=== PATIENT | female | born 1950 | race Caucasian/White ===

== ENCOUNTER 2020-04-27 08:47 | Outpatient (CLI) | payer MEDICARE, SELFPAY ==
--- NOTE | ~2020-04-27 | XR_ITS ---
XR abdomen/kub 1V 04/27/2020 09:17 Indication: Renal stones Procedure: KUB Comparison: No prior studies for comparison. Findings: Bowel gas pattern is nonobstructive. Moderate colonic fecal loading. There are extensive lepe rgical changes of the abdomen. There is a calcification on the left at the L4 level. There are left p elvic calcifications. Impression: 1: Calcifications of the left mid abdomen and pelvis. Cannot exclude ureteral stones. Consider correl ation with CT. Reviewed, dictated and finalized at location A. Impression: 1: Calcifications of the left mid abdomen and pelvis. Cannot exclude ureteral s tones. Consider correlation with CT.
== END 2020-04-27 08:48 | disposition home or self-care (01) ==
LOC: ANHIMG 08:55
PROVIDERS: PCP Internal Medicine; Visit Provider Internal Medicine
DX: N20.0 Calculus of kidney (principal)
CPT/HCPCS: 74018

== ENCOUNTER 2023-03-07 09:54 | Outpatient (CLI) | payer MEDICARE, SELFPAY ==
--- NOTE | ~2023-03-07 | XR_ITS ---
XR knee RT min 4V DATE: 03/07/2023 10:34 INDICATION: Right knee pain TECHNIQUE: Standing AP, PA and lateral views. [place] view. COMPARISON: None FINDINGS: There is severe osteoarthritis at the medial compartment with vtuj-je-epqg, periarticular s purring, in addition to very prominent particular spurring at the patellofemoral joint. There is varus angulation at the knee. The lateral compartment joint space is well preserved. Mild suprapatellar knee joint effusion. No fracture, dislocation, periosteal reaction or bone destruction, radiopaque intra-articular loose b emilio or chondrocalcinosis. IMPRESSION: Severe medial and patellofemoral compartment osteoarthritis Mild knee joint effusion Reviewed, dictated and finalized at location B.
--- NOTE | ~2023-03-07 | XR_ITS ---
XR knee LT min 4V DATE: 03/07/2023 10:34 INDICATION: Right knee pain TECHNIQUE: Standing AP, PA and lateral views. [place] view. COMPARISON: None FINDINGS: There is prominent tricompartment osteoarthritis, particularly severe at the medial compart ment with virtual natw-we-yzqi in addition to prominent subarticular cystic changes, particularly at the medial tibial plateau.. There is tricompartment periarticular spurring, most prominent at the pat ellofemoral joint. No fracture or dislocation, periosteal reaction or bone destruction or significant joint effusion is evident. No radiopaque intra-articular loose body or chondrocalcinosis is detected. IMPRESSION: Severe tricompartment osteoarthritis, most pronounced at the medial and patellofemoral co mpartments Reviewed, dictated and finalized at location B. IMPRESSION: Severe tricompartment osteoarthritis, most pronounced at the medial and patellofemoral compartments
== END 2023-03-07 09:55 | disposition home or self-care (01) ==
PROVIDERS: PCP Internal Medicine; Visit Provider Internal Medicine
DX: M17.0 Bilateral primary osteoarthritis of knee (principal); M25.461 Effusion, right knee
CPT/HCPCS: 73564

== ENCOUNTER 2025-01-14 07:18 | Outpatient (CLI) | payer MEDICARE, SELFPAY ==
[2025-01-14 08:13] LABS: Anion Gap 12 mmol/L (4-12); Blood Urea Nitrogen 16 mg/dL (7-17); Calcium 9.9 mg/dL (8.4-10.2); Carbon Dioxide 27 mmol/L (22-30); Chloride 100 mmol/L (98-107); Cholesterol 194 mg/dL (0-200); Estimated Glomerular Filt Rate > 60; Glucose 89 mg/dL (65-110); HDL Direct 96 mg/dL; Sodium 139 mmol/L (137-145); Triglycerides 81 mg/dL (<150)
[2025-01-14 08:24] LABS: LDL Cholesterol Direct 62 mg/dL
[2025-01-14 08:30] LABS: Hemoglobin A1C 5.7 % (<5.7)
[2025-01-14 09:14] LABS: Vitamin D 25 Hydroxy 61.6 ng/mL
== END 2025-01-14 07:19 | disposition home or self-care (01) ==
PROVIDERS: PCP Internal Medicine; Visit Provider Internal Medicine
DX: E78.2 Mixed hyperlipidemia (principal); E55.9 Vitamin D deficiency, unspecified; R73.03 Prediabetes; Z79.899 Other long term (current) drug therapy; Z96.651 Presence of right artificial knee joint; Z12.11 Encounter for screening for malignant neoplasm of colon
CPT/HCPCS: 36415; 80048; 80061; 82306; 83036

== ENCOUNTER 2025-06-23 08:17 | Outpatient (CLI) | payer MEDICARE, SELFPAY ==
--- OUTSIDE RECORDS SUMMARY | 2025-06-23 08:21 | XMS_ITS | Clinical Summary ---
Author Organization [facility] Address [address] [place] [address] Care Team Providers Care Software Engineer Developer Name Role Phone Yamil Brian MD Primary Care Provider [phone] Jaleesa Medina MD Unavailable [phone] Leonard Collier MD Unavailable Aft, Antoinette Arita MD PhD Unavailable [phone] Inocente Rendon MD Unavailable Allergies Active Allergy Reactions Criticality Noted Date Comments Sulfa (Sulfonamide Antibiotics) Rash Medium 11/18 Medications buPROPion XL (WELLBUTRIN XL) 150 mg 24 hr tabletIndicatio ns:Anxiety with Depression Take 1 tablet (150 mg total) by mouth every morning 9 Active RESTASIS 0.05 % ophthalmic emulsionIndicat ions:Keratoconj unctivitis Sicca Administer 1 drop into both eyes nightly 9 Active VITAMIN D2 50,000 unit capsuleIndicati ons:Vitamin D Deficiency,take s on Sundays Take 50,000 Units by mouth every 2 (two) weeks 8 Active rosuvastatin (CRESTOR) 10 mg tabletIndicatio ns:hyperlipidem ia Take 1 tablet (10 mg total) by mouth every morning Active MULTIVITAMIN ORALIndications :supplement Take 1 tablet by mouth every morning Active anastrozole (ARIMIDEX) 1 mg tablet TAKE 1 TABLET(1 MG) BY MOUTH DAILY 90 tablet 3 5 Active Calcium 600 + D,3, 600 mg-10 mcg (400 unit) per tablet TAKE 1 TABLET BY MOUTH DAILY 30 tablet 11 5 Active Active Problems Problem Noted Date Diagnosed Date S/P breast reconstruction 08/18/2020 Overview (08/18/2020): Added automatically from request for surgery [id number] History of breast cancer 05/02/2020 Acquired absence of both breasts 05/02/2020 Encounter for follow-up surveillance of breast c ancer 07/29/2019 Malignant neoplasm of upper- outer quadrant of right breast in female, estrogen receptor positive 03/22/2019 Cancer Staging:Clinical stage from 12/24/2017:Stage 0(cTis (DCIS), cN0, cM0, G3, ER: Not Assessed, MN: Not Assessed, HER2: Not Assessed) - Signed by Sarah Higgins, PhD on 04/16/2019 Pathologic stage from 03/11/2019:Stage IA(pT1c, pN1a, cM0, G1, ER+, MN+, HER2-) - Signed by Sarah Higgins, PhD on 04/16/2019 Nipple discharge in female 12/09/2018 Immunizations Immunization Administration Dates Next Due Influenza, Quadrivalent, Evy l Culture-based MDCK, Antibiotic Free, Intramuscular 08/19/2019 Influenza, Trivalent, Adjuvanted, Intramuscular 08/16/2020 Influenza, Trivalent, High D ose, Split, Preservative Free, Intramuscular 09/21/2018 Influenza, Unspecified 10/28/2013,11/29/2012 Moderna SARS-CoV-2 Monovalent Vaccination (12+ Y RS) 02/05/2021,01/04/2021 Pneumococcal Conjugate PCV 13 11/04/2018 Tdap 12/14/2019 Varicella 08/17/2010 ZOSTER Recombinant 07/13/2019 Surgical History Surgery Date Site/Laterality Comments HYSTERECTOMY 10/17/2006 - 11/16/2006 BREAST BIOPSY 11/17/1999 - 11/16/2000 Left BREAST BIOPSY 12/24/2018 Right BREAST BIOPSY 01/19/2019 Right TONSILLECTOMY 11/17/1955 - 11/16/1956 BIOPSY 11/17/1989 - 11/16/1990 thyroid SIMPLE MASTECTOMY W/ SENTINEL NODE BIOPSY 03/11/2019 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 03/17/2020 - 04/16/2020 Left Left prophylactic nipple sparing COLONOSCOPY 11/17/2014 - 11/16/2015 THYROIDECTOMY, PARTIAL 1990s REPLACEMENT TOTAL KNEE Right Medical History Medical History Date Comments Breast cancer (HCC) Right ductal carcinoma dxd 12/2018 s/p mastectomy 03/2019 and Left prophlactic mastectomy 03/2020, s/p radiation (last 06/2020) History of radiation therapy ibis ast cancer completed Hyperlipidemia Treated with sta tin Family History Medical History Relation Name Comments Stroke Father Lung cancer Maternal Grandfather lung cancer Maternal Grandfather Anesthesia problems Neg Hx Relation Name Status Comments Daughter Alive Father Maternal Grandfather Mother Alive Sister Alive Son Alive Social History Tobacco Use Types Packs/Day Years Used Date Smoking Tobacco: Never Smokeless Tobacco: Never Alcohol Use Standard Drinks/Week Comments Not Currently 0 (1 standard drink = 0.6 oz pur e alcohol) rarely PHQ-2 Answer Date Recorded PHQ-2 Score 0 07/08/2019 Comments No Sex and Gender Information Value Date Recorded Sex Assigned at Not on file Legal Sex 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 Gender Identity Not on file Sexual Orientation Straight 03/13/2019 3: 08 PM CDT 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, 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 Not on file Not on file Not on file Obstetrics History Para Term AB IAB SAB Ectopic Multiple Livin g Live Births 2 2 Date Outcome GA Total Labor Labor/2nd/3rd Weight Sex Type Anes PTL Tari A1 A5 Name Clin Para Para Last Filed Vital Signs Vital Sign Reading Time Taken Comments Blood Pressure 128/76 07/23/2024 8:02 AM CDT Pulse 103 07/23/2024 8:02 AM CDT Temperature 36.1 C (97 F) 07/23/2024 8:02 AM CDT Respiratory Rate 18 07/23/2024 8:02 AM CDT Oxygen Saturation 97% 07/23/2024 8:02 AM CDT Inhaled Oxygen Concentration - - Weight 69.1 kg (152 lb 6.4 oz) 07/23/2024 8:02 A M CDT Height 167.6 cm (5' 6) 07/12/2021 8:39 AM CDT Body Mass Index 24.6 07/12/2021 8:39 AM CDT Plan of Treatment Health Maintenance Due Date Last Done Comments Colon Cancer Screening-Colonoscopy 1950 Hepatitis C Screening 1950 Hepatitis B Screening 1969 Well Visit 65+ 2016 Pneumococcal vaccine 65+ (2 of 2 - PPSV23) 12/30/2018 11/04/2018 Zoster Vaccine (2 of 2) 09/07/2019 07/13/2019 Depression Screening 02/03/2020 02/02/2019, 02/03/20 19 Breast Cancer Screening-Mammogram 01/03/2021 020 Covid-19 Vaccine (3 - Modern a risk series) 03/05/2021 02/05/2021, 01/04/2021 Fall Risk Assessment 09/27/2021 09/27/2020 Influenza Vaccine (#1) 2025 , 08/19/2019, 09/21/2018, Additional history exists Osteoporosis Screening-Bone Density Scan 07/20/2026 07/20/2024, 07/10/2023, 04/25/2021, Additional history exists DTaP/Tdap/Td Vaccine (2 - Td or Tdap) 12/14/2029 12/14/2019 Medical Devices Implanted Type Area Country Manager Device Identifier Shelf Expiration Date Model / Serial / Lot [employer] 68-420 Natrelle 13.4cm Style 68 Smooth Anterior Diaphragm Valve P4.5cm Latex Free - [id number] - [id number] Implanted:Qty: 1 on 09/27/2020 by Jin Talley MD at [facility] Breast Left: Breast [employer] [id number] 05/14/2024 [id number] / [id number] / [id number] Description:360cc fill [employer] 133mx-11-T Natrelle Biocell Magna-Site [id number] Style 133mx-T Textured Tab - [id number] - [id number] Implanted:Qty: 1 on 03/11/2019 by Inderjit Keith II, MD at [facility] [employer] [id number] 07/27/2022 133M X-11 -T / [id number] / Musculoskeletal Transplant [id number] Flexhd 16x8cm Allograft Hydrate Biologic Mesh Pliable Thk.8-1.7mm - [id number] - [id number] Implanted:Qty: 1 on 03/11/2019 by Inderjit Keith II, MD at [facility] Right: Breast Musculoskeletal Transplant 07/14/2021 [id number] / [id number] / Life [id number] Alloderm Select [id number] Allograft Regenerative Thk.4-2.4mm Thick - [id number] - [id number] Implanted:Qty: 1 on 04/13/2020 by Aft, Antoinette Arita MD PhD at [facility] Left: Breast [employer] 12/17/2021 [id number] / [id number] / [id number] [employer] [id number] Reeves Microvascular 2.5mm Ring Pin Protective Cover Jaw Assembly Latex Free - [id number] Implanted:Qty: 1 on 04/13/2020 by Antionette Baig MD PhD at [facility] Right: Breast [employer] Skylines Allian [id number] 10/09/2024 [id number] / / [id number] [employer] [id number] Reeves Microvascular Anastomoses 1.5mm Field Identification Specialist Anastomosis Sterile - [id number] Implanted:Qty: 1 on 04/13/2020 by Jovanni, Antoinette Arita MD PhD at [facility] Right: Breast [employer] SPOOTNIC.COMian 11/06/2023 [id number] / / [id number] Explanted Type Area Country Manager Device Identifier Shelf Expiration Date Model / Serial / Lot [employer] [id number]-Dd-41-[id number] Implant Mammary Natrelle Te Smooth 344c-Jn-50-T With Fourte - [id number] - [id number] Implanted:Qty : 1 on 04/13/2020 by Antoinette Baig MD PhD at [facility] Explanted:Qty : 1 on 09/27/2020 by Jin Talley MD at [facility] Left: Breast [employer] [id number] 08/08/2024 133S-MX-1 3-T / [id number] / Procedures Procedure Name Priority Date/Time Associated Diagnosis Comments DEXA AXIAL SKELETON BONE DENSITY 1 OR MORE SITES Schedule Routine, Read Routine (OP Routine) 07/20/2024 8:08 AM CDT alf (current) use of aromatase inhibitors Osteopenia, unspecified location SCREENING MAMMOGRAM LEFT W SHANKAR UNILATERAL ONLY Schedule Routine, Read Routine (OP Routine) 01/03/2020 3:55 PM 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 Consider follow-up bone densitometry evaluation in 2-3 years. Electronically signed by: Tate Beebe M.D. 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 Bone mineral density (BMD) of the lumbar spine (L1-L4): T-score 0.9, previously 0.7 Bone mineral density (BMD) of the femoral neck: T-score -1.7, previously -2.0 Bone mineral density (BMD) of the total hip: T-score -1.3, previously -1.5 IMPRESSION: Osteopenia. Consider follow-up bone densitometry evaluation in 2-3 years. Electronically signed by: Tate Beebe M.D. Flor Salguero NP IMG DXA PROCEDURES Final R esult * Screening Mammogram Left W Shankar Unilateral Only (01/03/2020 3:55 PM STRATEGIC PARTNERSHIP SPECIALIST) Anatomical Region Laterality Modality Breast Left Mammography Narrative 01/03/2020 4:33 PM STRATEGIC PARTNERSHIP SPECIALIST Mammogram Technique: Left Breast Digital Breast Tomosynthesis, Unilateral C-view 2D Screening mammogram. Views obtained: left craniocaudal and left mediolateral oblique. Computer Aided Detection was performed. Mammogram Findings: The present examination has been compared to prior imaging studies performed at [facility] on 07/10/2004, 12/09/2018 and 01/03/2020. The breast is heterogeneously dense, which may obscure small masses. There is an area of architectural distortion in the anterior upper mediolateral oblique view of the left breast. Patient status post contralateral mastectomy for personal history of breast cancer. Impression: Area of architectural distortion in the left breast requires additional evaluation. Additional views are recommended. OVERALL FINAL ASSESSMENT: BI-RADS CATEGORY 0: Incomplete: Need additional imaging evaluation. Procedure Note Adria Maciel MD - 01/03/2020 Mammogram Technique: Left Breast Digital Breast Tomosynthesis, Unilateral C-view 2D Screening mammogram. Views obtained: left craniocaudal and left mediolateral oblique. Computer Aided Detection was performed. Mammogram Findings: The present examination has been compared to prior imaging studies performed at [facility] on 07/10/2004, 12/09/2018 and 01/03/2020. The breast is heterogeneously dense, which may obscure small masses. There is an area of architectural distortion in the anterior upper mediolateral oblique view of the left breast. Patient status post contralateral mastectomy for personal history ofbreast cancer. Impression: Area of architectural distortion in the left breast requires additional evaluation. Additional views are recommended. OVERALL FINAL ASSESSMENT: BI-RADS CATEGORY 0: Incomplete: Need additional imaging evaluation. Antoinette Baig MD PhD IMG MAMMO PROCEDURES Final Result from Last 3 Months or Most Recently Relevant to Health Maintenance Insurance MEDICARE [facility] MEDICARE [facility]AGE [facility] MEDICARE Address: [address] [address] [place] [address] [facility] MEDICARE [facility] MEDICARE Address: [address] [address] [place] [address] [address] [facility] MEDICARE Address: [address] [place] [address] [employer] MEDICARE ADVANTAGE [facility] MEDICARE Address: [address] [address] [place] [address] Advance Directives For more information, please contact: [phone] * Full Code (Latest Code Status on File) Date Activated Date Inactivated Comments 04/13/2020 6:55 PM 04/16/2020 7:48 PM * Full Code Date Activated Date Inactivated Comments 03/11/2019 4:19 PM 03/12/2019 3:29 PM Care Teams Software Engineer Developer Relationship Specialty Start Date End Date Yamil Brian MD [address] [place] [address] PCP - General Internal Medicine 11/12/18 Jaleesa Medina MD [address] [place] [address] Referring Physician Gynecology 11/12/18 Leonard Collier MD [address] [place] [address] Radiation Oncologist Radiation Oncology 04/16/19 Antoinette Baig MD PhD [address] [place] [address] Surgeon Surgical Oncology 04/16/19 Inocente Rendon MD [address] [place] [address] Medical Oncologist/Wave Guide Assembler Medical Oncology 10/09/20
--- OUTSIDE RECORDS SUMMARY | 2025-06-23 08:21 | XMS_ITS | Clinical Summary ---
Author Organization [facility] Address [address] [place] [address] Care Team Providers Care Compliance Review Specialist Name Role Phone Yamil Brian MD Primary Care Provider [phone] Heri Mckeon MD Unavailable [phone] Source Comments [facility] Affiliates and Associated Physician Practices is amultiple site organization consisting of ambulatory clinics and hospital sitesin [place] and [place]. This disclosure is being madepursuant to the Care Everywhere program and may not contain all information available regarding this patient. Last updated 18.[facility] [employer] Allergies Active Allergy Reactions Criticality Noted Date Comments Sulfa Antibiotics Rash Medium 12/09/2018 In antibiotics only Medications * Be aware that medications may not be up to date on this document. Alwaysverify current medications with the patient. rosuvastatin (Crestor) 10 MG tabletIndicatio ns:Hyperlipidem ia Take 1 tablet by mouth once daily Reasons: High Amount of Fats in the Blood 4 Active Restasis 0.05 % ophthalmic suspensionIndic ations:Dry Eye Syndrome 1 (one) drop 2 times daily BOTH EYES Reasons: Drying and Inflammation of Cornea and Conjunctiva of Eyes 4 Active Calcium 600+D3 600-10 MG-MCGIndicatio ns:Hypocalcemia Take 1 (one) tablet by mouth once daily Reasons: Low Amount of Calcium in the Blood 4 Active buPROPion XL 24hr (Wellbutrin-XL) 300 MG tabletIndicatio ns:Major Depressive Disorder Take 1 tablet by mouth every morning Reasons: Major Depressive Disorder 4 Active anastrozole (Arimidex) 1 MG tabletIndicatio ns:Malignant Neoplasm of Breast Take 1 tablet by mouth once daily Reasons: Cancer of the Breast 4 Active celecoxib (CeleBREX) 200 MG capsuleIndicati ons:Osteoarthri tis Take 1 (one) capsule by mouth once daily 60 capsule 2 4 Active acetaminophen (Tylenol) 500 MG capsuleIndicati ons:Pain,MILD TO MODERATE PAIN Take 2 (two) capsules by mouth 3 times daily Take 3x/day for 10 days, then as needed for pain 4 Active Multiple Vitamins-Minera ls (MULTIVITAMIN GUMMIES ADULT PO)Indications: SUPPLEMENT Take 1 tablet by mouth once daily. Indications: SUPPLEMENT 1 Active oxyCODONE, immediate release, (Roxicodone) 10 MG tabletIndicatio ns:Acute Pain,MODERATE TO SEVERE PAIN Take 0.5 (one-half) tablet to 1 (one) tablet by mouth every 4 hours as needed for Pain (pain) Reasons: Acute Pain, MODERATE TO SEVERE PAIN 30 tablet 4 Active aspirin EC (Ecotrin) 81 MG tablet TAKE 1 (ONE) TABLET BY MOUTH 2 TIMES DAILY FOR 42 DAYS TAKE FOR BLOOD CLOT PREVENTION FOR 6 WEEKS 84 tablet 4 Active omeprazole (PriLOSEC) 20 MG capsule TAKE 1 (ONE) CAPSULE BY MOUTH ONCE DAILY FOR 42 DAYS 42 capsule 4 Active Active Problems Problem Noted Date Diagnosed Date Primary osteoarthritis of both knees 02/24/2024 Social History Tobacco Use Types Packs/Day Years Used Date Smoking Tobacco: Never Smokeless Tobacco: Never Tobacco Cessation:Counseling Given: Not Answered Alcohol Use Standard Drinks/Week Comments Not Currently 0 (1 standard drink = 0.6 oz pur e alcohol) OASIS D0700: Social Isolation Answer Da te Recorded Frequency of experiencing loneliness or isolatio n Never 06/09/2024 OASIS A1250: Transportation Answer Date Recorded Lack of Transportation (Medical) No 06/09/2024 Lack of Transportation (Non-Medical) No 06/09/2024 Patient Unable or Declines to Respond No 06/09/2024 OASIS B1300: Health Literacy Answer Ravi e Recorded Frequency of needing help to read materials from doctor or pharmacy Never 06/09/2024 AUDIT-C Answer Date Recorded Q1: How often do you have a drink containing alc ohol? Monthly or less 05/19/2024 Q2: How many drinks containi ng alcohol do you have on a typical day when you are drinking? 1 or 2 05/19/2024 Q3: How often do you have si x or more drinks on one occasion? Never 05/19/2024 Overall Financial Resource Strain (CARDIA) Answe r Date Recorded How hard is it for you to pa y for the very basics like food, housing, medical care, and heating? Not hard at all 05/19/2024 PHQ-2 Answer Date Recorded Patient Health Questionnaire-2 Score 0 08/06/2024 [facility] - Occupational Stress Questionnaire Answer Date Recorded Do you feel stress - tense, restless, nervous, or anxious, or unable to sleep at night because your mind is troubled all the time - these days? Not at all 05/19/2024 Hunger Vital Sign Answer Date Recorded Within the past 12 months, y ou worried that your food would run out before you got the money to buy more. Never true 05/19/20 24 Ran Out of Food in the Last Year Not on file 05/19/2024 PRAPARE - Transportation Answer Date Re corded In the past 12 months, has l ack of transportation kept you from medical appointments or from getting medications? No 01/2024 In the past 12 months, has l ack of transportation kept you from meetings, work, or from getting things needed for daily living? No 05/19/2024 Housing Stability Vital Sign Answer Ravi e Recorded In the last 12 months, was t here a time when you were not able to pay the mortgage or rent on time? No 05/19/2024 In the last 12 months, how many places have you lived? 1 05/19/2024 In the last 12 months, was t here a time when you did not have a steady place to sleep or slept in a custodial (including now)? 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 Gender Identity Not on file Sexual Orientation Not on file Last Filed Vital Signs Vital Sign Reading Time Taken Comments Blood Pressure 136/70 06/09/2024 12:06 PM CDT Pulse 87 06/09/2024 12:06 PM CDT Temperature 36.1 C (97 F) 06/09/2024 12:06 PM CDT Respiratory Rate 16 06/09/2024 12:06 PM CDT Oxygen Saturation 100% 06/09/2024 12:06 PM CDT Inhaled Oxygen Concentration - - Weight 68.6 kg (151 lb 3.2 oz) 05/19/2024 7:47 A M CDT Height 167.6 cm (5' 6) 05/19/2024 7:47 AM CDT Body Mass Index 24.4 05/19/2024 7:47 AM CDT Plan of Treatment Health Maintenance Due Date Last Done Comments COLOGUARD (AGES 45-75) - COLON CA SCREENING 1950 COLON MONITORING 1950 COLONOSCOPY - COLON CA SCREENING 1951 CT COLONOGRAPHY - COLON CA SCREENING 1950 Colorectal Cancer Screening 1950 FIT - COLON CA SCREENING 1950 FLEX SIG - COLON CA SCREENING 1950 HEPATITIS C SCREENING 06/06/1969 DTAP/TDAP/TD VACCINES (1 - Tdap) 1970 PNEUMOCOCCAL VACCINE 50+ (1 of 1 - PCV) 2001 ZOSTER VACCINE (1 of 2) 2001 MAMMOGRAM 01/03/2022 01/03/2020, 01/03/2020 COVID-19 VACCINE ( season) 2024 02/05/2021, 01/04/2021 DEPRESSION SCREENING 11/17/2024 02/23/2024 MEDICARE AWV CALENDAR YEAR 2024 INFLUENZA VACCINE (#1) 2025 , 08/19/2019, 09/21/2018, Additional history exists Respiratory Syncytial Virus (RSV) Vaccine Pt: or over 60 yrs (1 - 1-dose 75+ series) 2026 BONE DENSITY TESTING Completed 07/20/2024, 07/10/2023, 04/25/2021, Additional history exists HEPATITIS B VACCINE Aged Out No longe r eligible based on patient's age to complete this topic HIB VACCINE Aged Out No longer eligi ble based on patient's age to complete this topic HPV VACCINE Aged Out No longer eligi ble based on patient's age to complete this topic MENINGOCOCCAL (Group B) VACCINE SHARED DECISION-MAKING Aged Out No longer eligible based on patient's age to complete this topic MENINGOCOCCAL GROUPS A/C/Y/W VACCINE Aged Out No longer eligible based on patient's age to complete this topic Medical Devices Implanted Type Area Supervisor Parking Lot Device Identifier Shelf Expiration Date Model / Serial / Lot Cmnt Bone Plc R 40gm Grn Implanted:Qty: 1 on 05/19/2024 by Heri Mckeon MD at [facility] Right: Knee [employer] 09/16/2026 [id number] / / [id number] Cmpnt Ptlr Std 28mm 3 Pg Kn Ser A Implanted:Qty: 1 on 05/19/2024 by Heri Mckeon MD at [facility] Right: Knee [employer] 07/10/2028 [id number] / / [id number] Tray Tib 71mm Kn Cocr I Beam Implanted:Qty: 1 on 05/19/2024 by Heri Mckeon MD at [facility] Right: Knee [employer] 04/06/2034 [id number] / / [id number] Cmpnt Fem Kn Rt Cr Cmnt Prm Vngrd Intlk Implanted:Qty: 1 on 05/19/2024 by Heri Mckeon MD at [facility] Right: Knee [employer] 01/16/2034 [id number] / / [id number] Brng 37d97qm Vngrd Vivacit-E Kn Ant Stab Implanted:Qty: 1 on 05/19/2024 by Heri Mckeon MD at [facility] Right: Knee [employer] 03/28/2029 [id number] / / [id number] Insurance [facility] ADV [facility]IC[facility] ADV Advance Directives * Full Code (Latest Code Status on File) Date Activated Date Inactivated Comments 05/22/2024 10:38 AM To update the patient's code status, place a code status order. Do not modify or discontinue any currently active code status orders. * Full Code Date Activated Date Inactivated Comments 05/19/2024 12:57 PM 05/20/2024 12:32 PM Care Teams Compliance Review Specialist Relationship Specialty Start Date End Date Yamil Brian MD [address] [place] [address] PCP - General Internal Medicine 02/23/24 [place] [address] [address] Surgeon Orthopedic Surgery 02/23/24
--- OUTSIDE RECORDS SUMMARY | 2025-06-23 08:21 | XMS_ITS | Encounter Summary ---
Author Organization [facility] Address [address] [place] [address] Care Team Providers Care Search Engine Marketing Strategist Name Role Phone Yamil Brian MD Primary Care Provider [phone] Heri Mckeon MD Unavailable [phone] Encounter Details Date Type Department Care Team (Late st Contact Info) Description 11/06/2022 Lab Requisition [facility] [address] [place] [address] Car Driscoll MD [address] [place] [address] Social History Tobacco Use Types Packs/Day Years Used Date Smoking Tobacco: Never Assessed Comments Unknown Sex and Gender Information Value Date Recorded Sex Assigned at Not on file 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 Gender Identity Not on file Sexual Orientation Not on file documented as of this encounter Plan of Treatment Not on file documented as of this encounter Procedures Procedure Name Priority Date/Time Associated Diagnosis Comments DERMATOPATHOLOGY Routine 11/05/2022 12:0 0 AM CLEAN OUT DRILLER HELPER documented in this encounter Results * DERMATOPATHOLOGY (11/05/2022 12:00 AM CLEAN OUT DRILLER HELPER) Case Report Dermatopathology Report Case: [id number] Authorizing Provider: Car Driscoll MD Collected: 11/05/2022 12:00 AM Ordering Location: [facility] Received: 11/06/2022 06:19 AM Pathologist: Will Asher MD Specimen: Skin, mid upper back 2 4:10 PM [facility] Final Diagnosis Specimen A. SKIN, mid upper back: EPIDERMOID CYST (L72.0) PRESENT AT MARGIN 2 4:10 PM [facility]ERMATOP[facility]OR[facility] at [address] CLEAN OUT DRILLER HELPER Clinical History Reoccur Cyst 4:10 PM [facility] Gross Description Specimen A: Received is one formalin filled container labeled with the patient's name and designated mid upper back. The specimen consists of a [id number] and 40h8h3bn piece of skin. The specimen is serially sectioned and account representative sections are submitted in cassette 1. Jar 1. 4:10 PM [facility] Microscopic Description Specimen A. SKIN, mid upper back: Within the dermis, there is a space lined by epithelium that resembles normal epidermis and the infundibular portion of the hair follicle. This lesion is present at the margin of the specimen. 2 4:10 PM [facility] Disclaimer An external and internal positive and negative controls are appropriate for the histochemical, immunohistochemical and immunofluorescence stain(s) in this case (if any), except where stated explicitly. The performance characteristics of the stain(s) cited in this report were developed and its performance characteristic determined by the Dermatopathology Laboratory at [facility], directed by Dr. Zahra Asher. These tests need not be, and therefore are not, approved by the [place] Food and Drug Administration. The tests are used for clinical purposes. Billing Codes Specimen Charges Stain Charges 09106 1 2 4:10 PM [facility] Embedded Images 2 4:10 PM [facility] Pathology/Cytolog y TISSUE SPECIMEN FROM SKIN / Unknown 11/05/2022 11/06/2022 6:19 AM [facility] us Car Driscoll MD LAB - PATHOLOGY/CYTOLOGY ORDERAB LES Final Result DERMATOPATHOLOGY LABORATORY [facility] - Department of Dermatology [address], [address] [phone] documented in this encounter Visit Diagnoses Not on filedocumented in this encounter Care Teams Search Engine Marketing Strategist Relationship Specialty Start Date End Date Yamil Brian MD [address] [place] [address] PCP - General Internal Medicine 02/23/24 [place] [address] [place] [address] Surgeon Orthopedic Surgery 02/23/24 documented as of this encounter
--- OUTSIDE RECORDS SUMMARY | 2025-06-23 08:21 | XMS_ITS ---
Author Organization [facility] Address [address] [place] [address] Care Team Providers Care Athletic Field Custodian Name Role Phone Yamil Brian MD Primary Care Provider [phone] Jaleesa Medina MD Unavailable [phone] Leonard Collier MD Unavailable Aft, Antoinette Arita MD PhD Unavailable [phone] Inocente Rendon MD Unavailable Active Problems Problem Noted Date Diagnosed Date S/P breast reconstruction 08/18/2020 Overview (08/18/2020): Added automatically from request for surgery [id number] History of breast cancer 05/02/2020 Acquired absence of both breasts 05/02/2020 Encounter for follow-up surveillance of breast c ancer 07/29/2019 Malignant neoplasm of upper- outer quadrant of right breast in female, estrogen receptor positive 03/22/2019 Cancer Staging:Clinical stage from 12/24/2017:Stage 0(cTis (DCIS), cN0, cM0, G3, ER: Not Assessed, NJ: Not Assessed, HER2: Not Assessed) - Signed by Sarah Higgins, PhD on 04/16/2019 Pathologic stage from 03/11/2019:Stage IA(pT1c, pN1a, cM0, G1, ER+, NJ+, HER2-) - Signed by Sarah Higgins, PhD on 04/16/2019 Nipple discharge in female 12/09/2018 Current Treatment and Therapy Plans No current plan information found. Past Treatment and Therapy Plans No past plan information found. Radiation Treatments * Course C1 RCW 2019 06/04/2019 - 07/14/2019 Treatment Period Energy Fraction Dose Fractions Total Dose Plans Planned RT CW_LNs 06/04/2019 - 07/14/2019 180 5,040 Reference Points Delivered RCW_LNs 06/04/2019 - 07/14/2019 5,040 Lifetime Dose Tracking * Chemical Lifetime Dose Automatic Entry Manual Entr y DLP 606 mGycm 606 mGycm 0 mGycm
--- OUTSIDE RECORDS SUMMARY | 2025-06-23 08:21 | XMS_ITS | Encounter Summary ---
Author Organization [facility] Address [address] [place] [address] Phone Care Team Providers Care Machine Baster Name Role Phone Yamil Brian MD Primary Care Provider [phone] Jaleesa Medina MD Unavailable [phone] Leonard Collier MD Unavailable Aft, Antoinette Arita MD PhD Unavailable [phone] Inocente Rendon MD Unavailable Encounter Details Date Type Department Care Team (Latest Contact Info) Description 12/02/2023 Orders Only [facility] Scanning, Provider Social History Tobacco Use Types Packs/Day Years Used Date Smoking Tobacco: Never Smokeless Tobacco: Never Alcohol Use Standard Drinks/Week Comments Not Currently 0 (1 standard drink = 0.6 oz pur e alcohol) rarely PHQ-2 Answer Date Recorded PHQ-2 Score 0 07/08/2019 Comments No Sex and Gender Information Value Date Recorded Sex Assigned at Not on file 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 Gender Identity Not on file Sexual Orientation Straight 03/13/2019 3: 08 PM CDT 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, 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 Not on file Not on file Not on file documented as of this encounter Plan of Treatment Not on file documented as of this encounter Procedures Procedure Name Priority Date/Time Associated Diagnosis Comments SCAN - LABS 12/02/2023 documented in this encounter Results * SCAN - LABS (12/02/2023) us Provider Scanning Final Result documented in this encounter Visit Diagnoses Not on filedocumented in this encounter Care Teams Machine Baster Relationship Specialty Start Date End Date Yamil Brian MD [address] [place] [address] PCP - General Internal Medicine 11/12/18 Jaleesa Medina MD [address] [place], [place] [id number] Referring Physician Gynecology 11/12/18 Leonard Collier MD [address] [place] [address] Radiation Oncologist Radiation Oncology 04/16/19 Aft, Antoinette Arita MD PhD [address] [place] [address] Surgeon Surgical Oncology 04/16/19 Inocente Rendon MD [address] [place] [address] Medical Oncologist/Marine Engineering Teacher Medical Oncology 10/09/20 documented as of this encounter
--- OUTSIDE RECORDS SUMMARY | 2025-06-23 08:21 | XMS_ITS | Encounter Summary ---
Author Organization [facility] Address [address] [place] [address] Phone Care Team Providers Care Sewer Contractor Name Role Phone Yamil Brian MD Primary Care Provider [phone] Jaleesa Medina MD Unavailable [phone] Leonard Collier MD Unavailable Aft, Antoinette Arita MD PhD Unavailable [phone] Sagar SHEIKH MD, Inderjit Liriano Unavailable Aubree Kurtz MD Unavailable Inocente Rendon MD Unavailable Encounter Details Date Type Department Care Team (Latest Contact Info) Description 03/11/2019 Orders Only [facility] Scanning, Provider Social History Tobacco Use Types Packs/Day Years Used Date Smoking Tobacco: Never Smokeless Tobacco: Never Alcohol Use Standard Drinks/Week Comments No 0 (1 standard drink = 0.6 oz pur e alcohol) Comments No Sex and Gender Information Value Date Recorded Sex Assigned at Not on file 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 Gender Identity Not on file Sexual Orientation Straight 03/13/2019 3: 08 PM CDT documented as of this encounter Plan of Treatment Not on file documented as of this encounter Procedures Procedure Name Priority Date/Time Associated Diagnosis Comments SCAN - PATHOLOGY 03/11/2019 documented in this encounter Results * SCAN - PATHOLOGY (03/11/2019) us Provider Scanning Final Result documented in this encounter Visit Diagnoses Not on filedocumented in this encounter Care Teams Sewer Contractor Relationship Specialty Start Date End Date Yamil Brian MD [address] [place] [address] PCP - General Internal Medicine 11/12/18 Jaleesa Medina MD [address] [place] [address] Referring Physician Gynecology 11/12/18 Leonard Collier MD [address] [place] [address] Radiation Oncologist Radiation Oncology 04/16/19 Aft, Antoinette Arita MD PhD [address] [place] [address] Surgeon Surgical Oncology 04/16/19 Inderjit Keith II, MD [address] [place] [address] Referring Physician Plastic Surgery 04/16/19 10/08/20 Aubree Kurtz MD [address] [place] [address] Medical Oncologist/Reservations Sales Agent Medical Oncology 04/16/19 10/08/20 Inocente Rendon MD [address] [place] [address] Medical Oncologist/Reservations Sales Agent Medical Oncology 10/09/20 documented as of this encounter
--- OUTSIDE RECORDS SUMMARY | 2025-06-23 08:21 | XMS_ITS | Encounter Summary ---
Author Organization [facility] Address [address] [place] [address] Phone Care Team Providers Care Stage Settings Painter Name Role Phone Yamil Brian MD Primary Care Provider [phone] Jaleesa Medina MD Unavailable [phone] Leonard Collier MD Unavailable Aft, Antoinette Arita MD PhD Unavailable [phone] Inocente Rendon MD Unavailable Encounter Details Date Type Department Care Team (Latest Contact Info) Description 05/21/2022 Orders Only [facility] Scanning, Provider [...] on file Legal Sex Female 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 Gender Identity Not on file Sexual Orientation Straight 03/13/2019 3: 08 PM CDT 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, 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 Not on file Not on file Not on file documented as of this encounter Plan of Treatment Not on file documented as of this encounter Procedures Procedure Name Priority Date/Time Associated Diagnosis Comments SCAN - LABS 05/21/2022 documented in this encounter Results * SCAN - LABS (05/21/2022) us Provider Scanning Final Result documented in this encounter Visit Diagnoses Not on filedocumented in this encounter Care Teams Stage Settings Painter Relationship Specialty Start Date End Date Yamil Brian MD [address] [place] [address] PCP - General Internal Medicine 11/12/18 Jaleesa Medina MD [address] [place], [place] [phone] Referring Physician Gynecology 11/12/18 Leonard Collier MD [address] [place] [address] Radiation Oncologist Radiation Oncology 04/16/19 Aft, Antoinette Arita MD PhD [address] [place] [address] Surgeon Surgical Oncology 04/16/19 Inocente Rendon MD [address] [place] [address] Medical Oncologist/Paint Prepper Medical Oncology 10/09/20 documented as of this encounter
== END 2025-06-23 08:18 | disposition home or self-care (01) ==
LOC: ANHAUDIO 08:17
PROVIDERS: PCP Internal Medicine; Visit Provider Otolaryngology
DX: H90.3 Sensorineural hearing loss, bilateral (principal)
CPT/HCPCS: 92557; 92567

== ENCOUNTER 2025-10-26 07:28 | Outpatient (CLI) | payer MEDICARE, SELFPAY ==
--- NOTE | ~2025-10-26 | US_ITS ---
EXAMINATION: US thyroid DATE: 10/26/2025 08:40 INDICATION: Thyroid disorder TECHNIQUE: Multiple ultrasound images of the thyroid were obtained. COMPARISON: None. FINDINGS: The right lobe is not seen consistent with previous right-sided thyroidectomy. The left lobe measures 3.0 x 1.4 x 1.3 cm. Multiple nodules are present with the largest measuring 9 x 7 x 7 mm, TR 4 classification. Isthmus: 3 mm IMPRESSION: 1. Patient status post right thyroidectomy. 2. Diminutive appearance of the left lobe of the thyroid with subcentimeter nodules of somewhat suspicious appearance, TR 4, too small to reliably sampled with FNA. Correlation with follow-up thyroid ultrasound in 12 months recommended. Reviewed, dictated and finalized at location A. RUMENT SETTER IMPRESSION: 1. Patient status post right thyroidectomy. 2. Diminutive appearance of the left lobe of the thyroid with subcentimeter nod ules of somewhat suspicious appearance, TR 4, too small to reliably sampled wit h FNA. Correlation with follow-up thyroid ultrasound in 12 months recommended.
== END 2025-10-26 07:29 | disposition home or self-care (01) ==
PROVIDERS: PCP Internal Medicine; Visit Provider Internal Medicine
DX: E07.9 Disorder of thyroid, unspecified (principal)
CPT/HCPCS: 76536